=== PATIENT | female | born 1960 | race Caucasian/White ===

== ENCOUNTER → 2018-03-30 | Outpatient (CLI) | payer OTHER ==
--- NOTE | 2018-03-30 11:46 | RADIOLOGY IMAGING REPORT ---
FACILITY: [facility] PATIENT NAME: Kiarra Berkowitz : 1960 MR: [id number] V: [id number] EXAM DATE: ORDERING PHYSICIAN: GREGG TSAI TECHNOLOGIST: Location: [facility] Patient: Kiarra Berkowitz : 1960 Visit/Account:[id number] Date of Sevice: 03/30/2018 Exam type: US VENOUS LOWER EXT LT History: Pain and swelling of left lower extremity x1 week, RA Comparison: None. Findings: Left lower extremity veins were imaged including the left common femoral vein, greater saphenous vein , superficial femoral vein, popliteal vein, posterior tibial vein, peroneal vein and anterior tibial vein revealing no evidence of intraluminal thrombi. The veins were compressible and demonstrated aug mentation. IMPRESSION: 1. No sonographic evidence DVT involving the left lower extremity veins Report Dictated By: Krystle Snider MD at 03/30/2018 11:39 AM Report E-Signed By: Krystle Snider MD at 03/30/2018 11:42 AM WSN:[id number]
== END ==
LOC: US 10:30
PROVIDERS: ATTEND Family Medicine
DX: M79.605 Pain in left leg (principal)